=== PATIENT | female | born 1990 | race Two or more races ===

== ENCOUNTER 2017-05-30 18:51 | Emergency (ER) | payer BC | END 2017-05-30 19:30 | disposition home or self-care (01) | LOC: ER 18:51 | DX: B34.9 Viral infection, unspecified (principal) | CPT/HCPCS: 99283 ==

== ENCOUNTER 2017-10-21 13:45 | Emergency (ER) | payer BC | END 2017-10-21 15:39 | disposition home or self-care (01) | LOC: ER 15:39 | DX: N60.12 Diffuse cystic mastopathy of left breast (principal); N60.11 Diffuse cystic mastopathy of right breast | CPT/HCPCS: 99282 ==

== ENCOUNTER 2019-02-09 21:05 | Emergency (ER) | payer BC ==
[~2019-02-09] VITALS: Ht 157.5 cm; Wt 72.6 kg
[~2019-02-09 21:05] MED LIST: IBUP-1060 PO; ONDA4TAB10 SL; OSEL75CA PO
[2019-02-09 21:17] VITALS: BP 133/89
--- NOTE | 2019-02-09 21:36 | PHYS DOC ---
Past Medical History Past Medical History: No Pertinent History, Other Additional Past Medical Histor: ectopic pregancy Past Surgical History: , Tubal ligation Alcohol Use: None Drug Use: None Adult General Chief Complaint Chief Complaint: TOE PROBLEM [facility] HPI Patient is a 29 year old female who presents with left great toe injury This evening around 5 she was wearing open high heels and accidentally kicked something. Pain to the left great toe. Nail with pain and mild bleeding from under the nail at the time. no other injury or trauma. 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 C/o left great toe pain/injury Integument: Denies rash or skin lesions [] Neurologic: Denies headache, focal weakness or sensory changes [] All other systems were reviewed and found to be within normal limits, except as documented in this note. Current Medications Current Medications Current Medications Medications (Trade) Dose Ordered Sig/Shaun Start Time Stop Time Status Last Admin Dose Admin Acetaminophen/ Hydrocodone Bitart (Lortab 5/325) 1 tab 1X ONCE 02/09/19 21:45 02/09/19 21:46 DC 02/09/19 21:50 1 TAB Allergies Allergies Allergies Coded Allergies Type Severity Reaction Last Updated Verified No Known Drug Allergies 05/30/17 No Physical Exam Physical Exam Constitutional: Well developed, well nourished, no acute distress, non-toxic appearance. [] HENT: Normocephalic, atraumatic, bilateral external ears normal, oropharynx moist, no oral exudates, nose normal. [] Eyes: PERRLA, EOMI, conjunctiva normal, no discharge. [] Neck: Normal range of motion, no tenderness, supple, no stridor. [] Cardiovascular:Heart rate regular rhythm, no murmur [] Lungs & Thorax: Bilateral breath sounds clear to auscultation [] Skin: Warm, dry, no erythema, no rash. [] Extremities: no cyanosis, no clubbing, ROM intact, no edema. [] Left great toe, no deformity, diffuse TTP of the left great toe, nail is intact at proximal nail fold, mild old blood under the nail. no subungual hematoma to evacuate. distal nail with slight mobility on exam. intact pulses and distal cap refill Neurologic: Alert and oriented X 3, normal motor function, normal sensory function, no focal deficits noted. [] Psychologic: Affect normal, judgement normal, mood normal. [] Current Patient Data Vital Signs Vital Signs Date Time Temp Pulse Resp B/P (MAP) Pulse Ox O2 Delivery O2 Flow Rate FiO2 02/09/19 21:50 16 98 Room Air 02/09/19 21:17 97.6 58 133/89 (104) 97.6 EKG EKG [] Radiology/Procedures Radiology/Procedures Xray left foot: no acute bony trauma Paper tape and gauze to toe nail to protect Impressions: Left great toe injury, contusion, nail injury Course & Med Decision Making Course & Med Decision Making Pertinent Labs and Imaging studies reviewed. (See chart for details) []Left great toe injury Napoleon for pain Xray: No acute bony trauma Paper tape to secure nail, patient feels that it is loose, mild lax on exam. Proximal fold intact. CRISTIANA Mooney, work note, she is a house keeper Stable for home care, educated on home care fu and reasons to return to the ER Isabelle Disclaimer Isabelle Disclaimer This electronic medical record was generated, in whole or in part, using a voice recognition dictation system. Departure Departure Impression: Primary Impression: Injury of great toe of left foot Disposition: HOME, SELF-CARE Condition: STABLE Referrals: NO PCP (PCP) [facility] Patient Instructions: Contusion, [id number] Additional Instructions: Go home and rest Ice and elevate Motrin and short course of norco as prescribed Tape and pad the nail for comfort, this will heal and grow out. May loose the nail Call the clinic for follow up, return for any concerns or worsening symptoms Scripts Hydrocodone/Apap 5-325 (NORCO 5-325 TABLET) 1 Each Tablet 1-2 TAB PO Q4-6HRS, #8 TAB Prov: NIKI MORROW APRN 02/09/19 NIKI MORROW APRN Feb 09, 2019 21:36
[2019-02-09] MEDS ORDERED: HYDROcodone/APAP 5/325MG 1 TAB TABLET PO ONE (21:45)
[2019-02-09] MEDS ORDERED: HYDR-3164 PO (22:04)
--- NOTE | 2019-02-10 00:55 | RAD ---
Indication:Trauma. TECHNIQUE: 3 views of the left foot COMPARISON:None FINDINGS/ impression: No acute fracture or dislocation. Electronically signed by: Tee Alvarez DO (02/10/2019 12:52 AM) [facility]
== END 2019-02-09 22:20 | disposition home or self-care (01) ==
LOC: ER 21:05
DX: S99.922A Unspecified injury of left foot, initial encounter (principal); W22.8XXA Striking against or struck by other objects, initial encounter; Y93.89 Activity, other specified; Y92.89 Other specified places as the place of occurrence of the external cause; Y99.8 Other external cause status
CPT/HCPCS: 73630; 99284